=== PATIENT | female | born 1930 | race Caucasian/White ===

== ENCOUNTER 2016-11-18 15:59 | Emergency (ER) | payer MEDICARE, BC ==
[2016-11-18] MEDS ORDERED: Potassium Chloride 10% 20 MEQ/15 ML Soln 15 ML UD Cup PO ONE (17:48)
--- NOTE | 2016-11-20 11:01 | CR ---
INDICATION: Transient dizziness. CHEST: PA and lateral views of the chest 11/18/2016 were compared with 2011 and 05/15/2008, revealing findings compatible with DISH, osteoporosis, COPD , with no evidence of an active infiltrate or effusion - no acute process identified. IMPRESSION: Stable chest. Heart is felt to be within normal limits in size with tortuous calcified aorta. MTDD
--- NOTE | 2016-11-23 10:13 | ER ---
DATE SEEN: 11/18/2016 TIME SEEN: The patient was seen at 1625 hours. CHIEF COMPLAINT: Orthostatic hypotension. HISTORY OF PRESENT ILLNESS: The patient was sitting, reading the paper. She then suddenly got lightheaded and dizzy. She denies any chest pain, shortness of breath, cough, headache, compromise in vision, ringing in her ears, change in hearing, palpitations, history of dyspnea on exertion, change in her baseline cough, or ankle edema. She notes this dizziness lasted a few minutes and went away. No difficulty with walking. Approximately 1 to 2 weeks ago, she was out pulling a large branch that was stuck in the ground (probably a root) and it did not come out. Consequently, on October 19, she strained her proximal right hamstring and she has a limp and some difficulty walking with this. She has been seen on multiple occasions for this. She has also had physical therapy, now it is approximately 2 months since this occurred, she still has the same pain. No CAT scan has been performed. She denies fever, sore throat, sinusitis, compromise in her vision, diplopia, neck tightness, arm, chest, back, stomach, chest wall discomfort, or falls. CURRENT MEDICATIONS: 1. Meloxicam 1 daily for her hip pain. 2. Carvedilol 12.5 mg daily. 3. Hydrochlorothiazide 1 tablet daily. 4. Simvastatin (Zocor) 1 tablet daily. ALLERGIES: None. REVIEW OF SYSTEMS: Negative except as noted above. GI: She denies problems with gastrointestinal symptoms of nausea, vomiting, diarrhea, constipation, or change in bowels. : Denies frequency, urgency, dysuria, or incontinence. MUSCULOSKELETAL: Denies change in muscle strength, but she has a change in the muscle discomfort in right proximal hamstring. NEUROLOGIC: Denies headache, paresis, weakness, or change in her muscle strength, but she notes she walks a little bit more with truncal flexion. PHYSICAL EXAMINATION: VITAL SIGNS: Blood pressure 178/68 sitting, standing 127/68, lying down 193/80; 98% oxygen saturation, 83 heart rate, and respirations 18. GENERAL: Clinically, the patient is very alert. She is attended by 2 of her sons and a grandson. They are very attentive to her and she denies any problems presently except for right hip discomfort. HEENT: PERRLA intact. Eyegrounds are normal. No hemorrhages or exudates. No abnormality of the optic cup disc. Hearing is slightly decreased. Uvula is midline. Tongue is midline. NECK: No cervical adenopathy. No bruits. No thyromegaly. No sentinel nodes. LUNGS: Clear to auscultation. No rales. HEART: S1, S2. No irregularity of rhythm. No tachycardia. ABDOMEN: Soft. No hepatosplenomegaly. No guarding. No abdominal discomfort. EXTREMITIES: Lower extremities, no edema. No tenderness. Dorsalis pedis, posterior tibialis, and also radial ulnar pulses are intact and normal. Capillary refill is normal. SKIN: Warm. LABORATORY DATA: EKG; normal sinus rhythm, slightly decreased voltage in aVL and Lead 3 and aVF. Troponin less than 0.01. Complete metabolic panel is normal except for potassium 3.1 and low, sodium 136, chloride 97, and CO2 of 30. BUN and creatinine ratio of 22, suggesting mild under hydration and GFR greater than 60. Glucose 119. Otherwise, the remainder of studies are normal. ASSESSMENT: 1. Orthostatic hypotension. Perhaps the patient would do better with an FENG inhibitor, however, apparently her son had problems with cough with FENG inhibitors, so it possibly may not be the drug of choice for her. 2. She has been taught exercise to diminish the orthostatic blood pressure changes before going to sitting to standing. Leg muscle exercises and also when she is standing to do exercises at the sink to increase cardiac output and cerebral circulation. 3. The patient has right posterior proximal hip discomfort proximal to the trochanteric bursa, and external and internal rotation are slightly decreased. This is secondary to her hamstring. There is reproducible pain. Proximal hamstring strain secondary to trying to unsuccessfully pull this tree branch/root out of the ground on October 19, 2016. It is possible for the patient to have an occult fracture. I did not perform a CT of her hip, perhaps if this persists that is something her healthcare providers could consider. 4. The patient is a refreshing woman, who is 86 years old and a young 68 plus years of age because of her refreshing countenance. 5. Hypokalemia. She was given a dose of 40 mEq potassium chloride in the emergency department and advised to take 20 mEq daily for the next 20 days. Follow up to get her potassium in the next 14 to 20 days. Also because of the hip discomfort, she has had physical therapy, but I think she needs more physical therapy in this right hip. After 2 weeks, should probably get hip CT to rule out potential stress fracture. Additional comment: The patient states she is active and does not do much sitting around except for when she had her hip pain. Otherwise, she mows the lawn and does cooking and housekeeping. She has a chronic intermittent occasional baseline cough and that has not changed. There is no suggestion of congestive heart failure. Her lungs are normal and she does not have cardiomegaly on the chest x-ray. /[id number] GAURANG/MARY ANN
== END 2016-11-18 18:00 | disposition home or self-care (01) ==
LOC: FB.ED 15:59
DX: I95.1 Orthostatic hypotension (principal); E87.6 Hypokalemia
CPT/HCPCS: 36415; 71020; 80053; 84484; 85025; 93005; 99284; A9270; 99283